=== PATIENT | male | born 1990 | race Two or more races ===

== ENCOUNTER 2018-03-29 12:20 | Emergency (ER) | payer SELFPAY ==
[~2018-03-29] VITALS: Ht 154.9 cm; Wt 57.2 kg
[2018-03-29 12:38] VITALS: BP 124/76
--- NOTE | 2018-03-29 13:09 | Emergency Room Report ---
History of Present Illness General Chief Complaint: Laceration Source: Patient Present Illness HPI 27-year-old male patient presents ER complaining of needing a wound dressing changed. reports that he was using a knife yesterday and cut his left thumb, states that he went to [facility] were redressed the wound. Reports that his finger was removed and he did not have it, states that he did not tell him back up. Reports does not know tetanus vaccination status, states that was not updated yesterday. Reports it was told by [facility] outpatient with a hand specialist. Reports that he came to the ER today because the wound was bleeding through and tingling in the dressing change. Reports he is right-hand dominant. Allergies: Coded Allergies: No Known Allergies (Unverified , 03/29/18) Patient History Past Medical History: see triage record Reviewed Nursing Documentation: PMH: Agreed; PSxH: Agreed Nursing Documentation-PMH Past Medical History: No Stated History Review of Systems All Other Systems: negative except mentioned in HPI Physical Exam Vital Signs Date Time Temp Pulse Resp B/P (MAP) Pulse Ox O2 Delivery O2 Flow Rate FiO2 03/29/18 12:38 98.0 64 18 124/76 99 Room Air 98.1 Sp02 EP Interpretation: reviewed, normal General Appearance: well appearing, no apparent distress, alert, GCS 15, non- toxic Head: normocephalic, atraumatic Eyes: bilateral eye normal inspection, bilateral eye PERRL ENT: hearing grossly normal, normal pharynx, no angioedema, normal voice, uvula midline, moist mucus membranes Neck: full range of motion Respiratory: lungs clear, normal breath sounds, no rhonchi, no respiratory distress, no accessory muscle use, no wheezing, speaking full sentences Cardiovascular #1: regular rate, rhythm, no edema Cardiovascular #2: 2+ radial (R), 2+ radial (L) Musculoskeletal: digits/nails normal, gait/station normal, normal range of motion, other - skin avulsion on left ulnar side thumb, portion of distal lateral nail removed, no nail avulsion or subungual hematoma, NIV, cap refill < 2seconds Neurologic: alert, oriented x3, responsive, motor strength/tone normal, sensory intact Psychiatric: mood/affect normal Skin: no rash Medical Decision Making PA Attestation Dr. Rosario is my supervising Physician whom patient management has been discussed with. Diagnostic Impression: Primary Impression: Encounter for wound re-check ER Course Pt. presents to the ED requesting wound check of left thumb. Ddx considered but are not limited to cellulitis, abscess, wound check, folliculitis. No fusiform swelling, no TTP along flexor tendon, no pain with extension, finger not held in flexion, low suspicion for flexor tenosynovitis. Vital signs: are WNL, pt. is afebrile ER COURSE: physical exam shows avulsed skin from ulnar aspect of left distal thumb. full range of motion, does not require imaging at this time. Wound has no signs of infection., no erythema, edema, TTP, sensation is intact to light touch. consult with Dr. Kaur who graciously accepted to see patient as an outpatient, provided patient with contact information, also schedule appointment and follow- up tomorrow. provided with Toradol for pain. Updated patient's tetanus status. Wound redressed with xeroform and sterile gauze. Bacitracin applied to wound. keep wound clean and dry. ER precautions given. DISCHARGE: Patient instructed to continue with medications per initial ER provider instructions. At this time pt. is stable for d/c to home. Patient resting comfortably, in no acute distress, nontoxic appearing. Will provide printed patient care instructions and any necessary prescriptions. Care plan and follow up instructions have been discussed with the patient prior to discharge. Patient instructed to follow-up with primary care provider for further treatment and referral. Patient questions asked and answered. ER precautions given. Patient instructed to return to ER immediately for any new or worsening of symptoms including but not limited to fever, worsening of pain symptoms. - Please note that this Emergency Department Report was dictated using [employer] operator technology software, occasionally this can lead to erroneous entry secondary to interpretation by the dictation equipment. Last Vital Signs Date Time Temp Pulse Resp B/P (MAP) Pulse Ox O2 Delivery O2 Flow Rate FiO2 03/29/18 12:38 98.0 64 18 124/76 99 Room Air 98.1 Disposition: HOME, SELF-CARE Condition: Stable Referrals: NOT CHOSEN [facility]/MD,REFERRING (PCP) Patient Instructions: Nonsutured Laceration Care Additional Instructions: Call Dr. Jules office to schedule appointment for tomorrow. Followup with primary care provider in 3 -5 days. Take medications as previously directed. Keep wound clean and dry. Patient questions asked and answered. ER precautions given, patient instructed to return to ER immediately for any new or worsening of symptoms. Bony Alva Mar 29, 2018 13:09
[2018-03-29] MEDS ORDERED: Tetanus/Diptheria/Pertussis Vaccine 0.5ml Syr IM ONE (13:15)
[2018-03-29] MEDS ORDERED: Ketorolac 30mg Inj IM ONE (13:15)
[2018-03-29] MEDS ORDERED: Bacitracin Oint UD TOPIC ONE ×2 (13:26→13:30)
[2018-03-29 14:00] VITALS: BP 132/78
== END 2018-03-29 14:00 | disposition home or self-care (01) ==
LOC: EMR 13:07
DX: Z48.817 Encounter for surgical aftercare following surgery on the skin and subcutaneous tissue (principal); Z23 Encounter for immunization
CPT/HCPCS: 90471; 90715; 96372; 99283; J1885